=== PATIENT | female | born 1970 | race Two or more races ===

== ENCOUNTER 2018-08-14 17:21 | Emergency (ER) | payer MEDICAID ==
[2018-08-14] MEDS: ONDANSETRON (ODT) 4 MG TAB ODT (19:13)
[2018-08-14] MEDS: IBUPROFEN 800 MG TAB PO (19:15)
[2018-08-14 19:20] LABS: URINE BLOOD (Dip) POC Negative (NEGATIVE); URINE GLUCOSE (Dip) POC Negative (NEGATIVE); URINE KETONES (Dip) POC 1+ (NEGATIVE); URINE LEUKOCYTE EST (Dip) POC Negative (NEGATIVE); URINE NITRITE (Dip) POC Negative (NEGATIVE); URINE TOTAL PROTEIN POC 1+ (NEGATIVE)
== END 2018-08-14 20:15 | disposition home or self-care (01) ==
LOC: E/R 17:21
DX: B34.9 Viral infection, unspecified (principal)
CPT/HCPCS: 81003; 81025; 99283